=== PATIENT | male | born 1970 | race Caucasian/White ===

== ENCOUNTER 2018-09-29 09:08 | Emergency (ER) | payer OTHER ==
[~2018-09-29] VITALS: Ht 172.7 cm; Wt 68.0 kg
[2018-09-29 09:08] VITALS: BP 154/101
[2018-09-29] MEDS ORDERED: VENTOLIN HFA 1818 GM INH (10:02)
[2018-09-29] MEDS ORDERED: TESSALON PERLE100 MG PO (10:02)
[2018-09-29] MEDS ORDERED: AMOXICILLIN 50500 MG PO (10:02)
== END 2018-09-29 10:06 | disposition home or self-care (01) ==
LOC: ER 09:08
DX: J40 Bronchitis, not specified as acute or chronic (principal); J02.9 Acute pharyngitis, unspecified; F17.210 Nicotine dependence, cigarettes, uncomplicated

== ENCOUNTER 2018-11-22 12:38 | Emergency (ER) | payer OTHER ==
[~2018-11-22] VITALS: Ht 172.7 cm; Wt 70.3 kg
[~2018-11-22 12:38] MED LIST: AMOXICILLIN 50500 MG PO; TESSALON PERLE100 MG PO; VENTOLIN HFA 1818 GM INH
[2018-11-22] MEDS ORDERED: KEFLEX500 M1 PO (13:22)
[2018-11-22 13:33] VITALS: BP 140/93
== END 2018-11-22 13:33 | disposition home or self-care (01) ==
LOC: ER 12:38
DX: S81.811A Laceration without foreign body, right lower leg, initial encounter (principal); F17.210 Nicotine dependence, cigarettes, uncomplicated; Z85.828 Personal history of other malignant neoplasm of skin; W26.8XXA Contact with other sharp object(s), not elsewhere classified, initial encounter; Y93.61 Activity, american tackle football; Y92.39 Other specified sports and athletic area as the place of occurrence of the external cause; Y99.8 Other external cause status